=== PATIENT | female | born 1960 ===

== ENCOUNTER 2017-01-11 06:36 | Emergency (ER) | payer OTHER ==
[2017-01-11 06:37] VITALS: BMI 29.6
[2017-01-11 06:45] VITALS: TEMP 97.6
[2017-01-11] MEDS ORDERED: MethylPREDNISolone 40 mg Vial IM STA (07:24)
--- NOTE | 2017-01-11 07:27 | C.PDOC ---
History Of Present Illness 56 yo female w/PMHx of NIDDM come in for evaluation of Left shoulder pain for past 3 weeks. Pt reports, pain is worse over past 10 days. Describes pain as localized over Left shoulder , constant, severe, worse with Left shoulder movement. Otherwise, pt denies known trauma or injury, fever, chills, headache, dizziness, CP, SOB, dyspnea, diaphoresis, palpitation, denies weakness, sensory or vascular deficits to Left arm. Ambulate to Ed for evaluation appears in severe pain, crying. Time Seen by Provider: 01/11/17 07:19 Chief Complaint (Nursing): Upper Extremity Problem/Injury History Per: Patient Past Medical History Reviewed: Historical Data, Nursing Documentation, Vital Signs Vital Signs: Last Vital Signs Temp 97.6 F 01/11/17 06:43 Pulse 73 01/11/17 08:33 Resp 20 01/11/17 08:33 BP 118/76 01/11/17 08:33 Pulse Ox 95 01/11/17 08:33 - Medical History PMH: Colonic Polyps, HTN, Hypercholesterolemia Denies: Chronic Kidney Disease Surgical History: Endoscopy Family History: States: No Known Family Hx - Social History Hx Alcohol Use: Yes Hx Substance Use: No - Immunization History Hx Tetanus Toxoid Vaccination: No Hx Influenza Vaccination: No Hx Pneumococcal Vaccination: No Review Of Systems Except As Marked, All Systems Reviewed And Found Negative. Constitutional: Negative for: Fever, Chills ENT: Negative for: Throat Pain Cardiovascular: Negative for: Chest Pain, Palpitations, Orthopnea, Edema, Light Headedness Respiratory: Negative for: Cough, Shortness of Breath, Wheezing Gastrointestinal: Negative for: Nausea, Vomiting, Abdominal Pain Musculoskeletal: Positive for: Shoulder Pain. Negative for: Neck Pain Skin: Negative for: Rash Neurological: Negative for: Weakness, Numbness Physical Exam - Physical Exam Appears: Well, Non-toxic, No Acute Distress Skin: Normal Color, Warm, No Rash, No Ecchymosis Head: Normacephalic Throat: No Erythema, No Drooling Neck: No Midline Cervical Tenderness, No Paracervical Tenderness, No Step Off Deformity, Supple, Other ((-) carotid btuits) Chest: Symmetrical Cardiovascular: Rhythm Regular, No Friction Rub, No Murmur, No JVD Respiratory: No Decreased Breath Sounds, No Accessory Muscle Use, No Stridor, No Wheezing Gastrointestinal/Abdominal: Soft Extremity: No Normal ROM (decrease AROM of left shoulder to extension and abduction due to pain.), Tenderness (moderate tenderness over superior left shoulder with mod muscle spasm supraspinatus. no palpable deformity, no skin changes.), Capillary Refill (less than 2sec to left arm.), No Deformity, No Swelling, Other (No neurovascular deficist to left hand.) Neurological/Psych: Oriented x3, Normal Speech, Normal Motor, Normal Sensation, Normal Reflexes ED Course And Treatment ECG: Interpreted By Me, Viewed By Me Interpretation Of ECG: SR@68/min, LAD, T wave inversion in III, no acute T wave or ST-T changes. O2 Sat by Pulse Oximetry: 97 Pulse Ox Interpretation: Normal - Other Rad left shoulder xray X-Ray: Interpreted by Me, Viewed By Me Interpretation: no acute fx or dislocation Progress Note: FSBS 128. On re-evaluation, pt is afebrile, hemodynamicaly stable. Non-toxic. PulsEOx 97% rA. Neck: Supple, (-) midline tenderness, (-) JVD, (-) carotid bruits. Lungs: CT b/L, BS equal B/L. CVS: (+)S1S2, reg. Left shoulder: exam c/w shoulder tendonitis. NO deformity, no neurovascular deficits. Mild decrease to Left shoulder extension and abduction due to shoulder pain. Neurologicaly intact. xray review (+) calcification. EKG- normal study. Sling applied. Pt advisee and ref. to f/u with Ortho in 2-3 days for re-eavl. return to Ed at any time if any worsening or new changes. Disposition Counseled Patient/Family Regarding: Studies Performed, Diagnosis, Need For Followup, Rx Given - Disposition Referrals: Héctor Arnold III, MD [Staff Provider] - [facility] [Outside] [facility] [place] [Outside] Disposition: HOME/ ROUTINE Disposition Time: 08:04 Condition: STABLE Additional Instructions: Sling for 1 week No shoulder movement for 1 week take medication as prescribed Follow up with PM, Orthopedist in 2-3 days for re-evaluation. Return to ED if any worsening or new changes. Prescriptions: Ibuprofen [Motrin Tab] 600 mg PO Q6 #20 tab Methocarbamol [Robaxin] 500 mg PO TID #14 tab traMADol [Ultram] 50 mg PO TID #7 tab Instructions: Rotator Cuff Tendinitis (ED) Print Language: FAROESE - Clinical Impression Clinical Impression: Shoulder tendonitis
[2017-01-11 08:33] VITALS: BP 118/76; PULSE 73; RESP 20
[2017-01-11] MEDS ORDERED: Oxycodone/Acetaminophen 5/325 mg Tab PO STA (08:59)
[2017-01-11] MEDS ORDERED: Oxycodone/Acetaminophen 5/325 mg Tab ONE (09:03)
--- NOTE | 2017-01-11 09:39 | RAD ---
PROCEDURE: Radiographs of the Left Shoulder Three views left shoulder performed. HISTORY: Pain. COMPARISON: Correlation made with the chest radiograph 01/02/2017 which partially imaged the the left shoulder FINDINGS: No evidence acute displaced BONES: No evidence of acute displaced fracture nor dislocation. JOINTS: Mild degenerative changes left acromioclavicular joint. There is a small calcific density within the soft tissues adjacent to the PE is humeral head that could represent sequela calcific tendinitis SOFT TISSUES: As above OTHER FINDINGS: None. IMPRESSION: No evidence acute displaced fracture nor dislocation. Mild DJD left acromioclavicular joint. Findings also suggest sequela of mild calcific tendinitis
[2017-01-11 18:05] VITALS: O2SAT 97
== END 2017-01-11 09:11 | disposition home or self-care (01) ==
LOC: C.ER 06:36
DX: M75.32 Calcific tendinitis of left shoulder (principal)
CPT/HCPCS: 73030; 82948; 96372; 99284; J2920

== ENCOUNTER 2017-08-20 18:25 | Emergency (ER) | payer OTHER ==
[2017-08-20 18:25] VITALS: BMI 29.7
[2017-08-20 19:32] VITALS: BP 142/74; PULSE 74; RESP 18; TEMP 98.9; O2SAT 95
--- NOTE | 2017-08-20 20:45 | C.PDOC ---
History Of Present Illness 56yo female, presents to ED with complaints of left shoulder pain for the past 3 weeks. She reports pain is localized to her shoulder and is worse with left arm movement or lifting the arm. Pt admits, similar sx to Right shoulder last year. Pt denies known trauma, injury, denies recent illness, fever, chills, denies chest pain , shortness of breath, dyspnea, diaphoresis, palpitation, abd. pain, V/D, denies deformity to left shoulder, weakness, sensory or vascular deficits to Left arm. Ambulate to Ed for evaluation, not in nay apparent distress. Time Seen by Provider: 08/20/17 19:46 Chief Complaint (Nursing): Upper Extremity Problem/Injury History Per: Patient History/Exam Limitations: no limitations Onset/Duration Of Symptoms: Days Current Symptoms Are (Timing): Still Present Quality: "Pain" Exacerbating Factor(s): Movement Past Medical History Reviewed: Historical Data, Nursing Documentation, Vital Signs Vital Signs: Last Vital Signs Temp 98.9 F 08/20/17 19:30 Pulse 74 08/20/17 19:30 Resp 18 08/20/17 19:30 BP 142/74 08/20/17 19:30 Pulse Ox 95 08/20/17 21:07 - Medical History PMH: Colonic Polyps, HTN, Hypercholesterolemia Denies: Chronic Kidney Disease Surgical History: Endoscopy Family History: States: No Known Family Hx - Social History Hx Alcohol Use: No Hx Substance Use: No - Immunization History Hx Tetanus Toxoid Vaccination: No Hx Influenza Vaccination: No Hx Pneumococcal Vaccination: No Review Of Systems Except As Marked, All Systems Reviewed And Found Negative. Constitutional: Negative for: Fever, Chills Cardiovascular: Negative for: Chest Pain Respiratory: Negative for: Shortness of Breath Musculoskeletal: Positive for: Shoulder Pain Physical Exam - Physical Exam Appears: Well, Non-toxic, No Acute Distress Skin: Normal Color, Warm Head: Normacephalic Eye(s): bilateral: PERRL Throat: No Drooling Neck: Normal ROM, Trachea Midline, No Midline Cervical Tenderness, No Paracervical Tenderness, No Step Off Deformity, Supple Chest: Symmetrical Cardiovascular: Rhythm Regular, No Murmur Respiratory: No Decreased Breath Sounds, No Accessory Muscle Use, No Stridor, No Wheezing Extremity: Normal ROM (mild discomfort to Left shoulder abduction/extension. No neurovascular deficits distally.), Tenderness (superior/lateral aspect of Left shoulder), Capillary Refill (less than 2sec to left hand), No Deformity, No Swelling Neurological/Psych: Oriented x3, Normal Speech, Normal Cognition, Normal Motor, Normal Sensation, Normal Reflexes ED Course And Treatment ECG: Interpreted By Me, Viewed By Me ECG Rhythm: Sinus Rhythm Interpretation Of ECG: SR@68/min, NAD, no acute T wave or ST-T changes. O2 Sat by Pulse Oximetry: 95 (RA) Pulse Ox Interpretation: Normal - Other Rad Left shoulder X-Ray: Interpreted by Me, Viewed By Me Interpretation: (+) joint calcification noted Progress Note: On re-eval, pt is awake, comfortable, not in any apparent distress. Afebrile, hemodynamicaly stable. Non-toxic. Tolerate Po well in ED. PulsEOx 97% RA. ENT: No acute findings. neck: Supple, (-) meningeal sign , (-) carotid bruits, (-) JVD. Lungs: CTA B/L, BS equal B/L. left shoulder: exam c/w left shoulder tenderness, superior with mild discomfort on FAROM, no deformity, no neurovascular deficits. Neuorlogicaly intact. Imaging review- normal. Pt advised on course of ds. ref. to f/u with PMD, Ortho In 2-3 days for re-eavl. Return to ED if any worsening or new changes. Disposition Counseled Patient/Family Regarding: Studies Performed, Diagnosis, Need For Followup, Rx Given - Disposition Referrals: Radha Martinez MD [Staff Provider] - Disposition: HOME/ ROUTINE Disposition Time: 20:30 Condition: STABLE Additional Instructions: Light duty to left shoulder/arm, take medication as prescribed Follow up with PMD, orthopedist in 2-3 days for re-evaluation. return to ED if any worsening or new changes. Prescriptions: Ibuprofen [Motrin Tab] 600 mg PO Q6 #20 tab Prednisone [Deltasone] 40 mg PO DAILY #6 tablet traMADol [Ultram] 50 mg PO Q12 #7 tab Instructions: Tendonitis Forms: [employer] (Swedish) Print Language: SAMMARINESE - Clinical Impression Clinical Impression: Shoulder tendonitis - PA / STAFFING BRANCH MANAGER / Resident Statement MD/DO has reviewed & agrees with the documentation as recorded. - Scribe Statement The provider has reviewed the documentation as recorded by the Scribe (Vesta Robles) Provider Attestation: All medical record entries made by the Shannon were at my direction and personally dictated by me. I have reviewed the chart and agree that the record accurately reflects my personal performance of the history, physical exam, medical decision making, and the department course for this patient. I have also personally directed, reviewed, and agree with the discharge instructions and disposition.
--- NOTE | 2017-08-21 08:57 | RAD ---
PROCEDURE: Radiographs of the Left Shoulder HISTORY: pain COMPARISON: Left shoulder radiographs performed 01/11/17 FINDINGS: BONES: No acute displaced fracture. The distal clavicle and underlying ribs appear intact. Degenerative changes of the visualized thoracic spine. JOINTS: No acute dislocation. Mild glenohumeral joint space narrowing. Acromioclavicular arthropathy. 2 mm calcification adjacent to the humeral head consistent with calcific tendinitis. SOFT TISSUES: Soft tissues appear unremarkable. No evidence of radiopaque foreign body. IMPRESSION: Evidence of calcific tendonitis, left shoulder. No acute displaced fracture or dislocation evident. If symptoms persist or if there is continued clinical concern, x-ray follow-up in 7-10 days should be considered.
--- NOTE | 2017-08-22 08:54 | CARD ---
APPROVED REPORT EKG Measurement Heart [id number] <Conclusion> Normal sinus rhythm Normal ECG
== END 2017-08-20 21:05 | disposition home or self-care (01) ==
LOC: C.ER 18:25
DX: M75.92 Shoulder lesion, unspecified, left shoulder (principal)
CPT/HCPCS: 73030; 93005; 96372; 99283; J1885